=== PATIENT | female | born 1985 | race Hispanic/Latino ===

== ENCOUNTER 2016-12-14 22:18 | Emergency (ER) | payer OTHER ==
[2016-12-14 22:31] VITALS: BP 134/81; PULSE 90; RESP 16; TEMP 97.8; O2SAT 100
--- NOTE | 2016-12-14 22:52 | ED PDOC ---
HPI: General Adult Time Seen by Provider: 12/14/16 22:34 Chief Complaint (Nursing): Finger,Hand,&Wrist Chief Complaint (Provider): Ring stuck on left ring finger History Per: Patient History/Exam Limitations: no limitations Onset/Duration Of Symptoms: Hrs Have you had recent travel within the past 21 days to any of the following countries: [place], [place], [place] or [place]?: No Current Symptoms Are (Timing): Still Present Additional Complaint(s): PT states she was out at graduation when she came home she left her ring and engagement ring where tight. Pt states that she was unable to remove finger after ice and elevation which prompted visit. No injury. Past Medical History Reviewed: Historical Data, Nursing Documentation, Vital Signs Vital Signs: Last Vital Signs Temp 97.8 F 12/14/16 22:28 Pulse 90 12/14/16 22:28 Resp 16 12/14/16 22:28 BP 134/81 12/14/16 22:28 Pulse Ox 100 12/14/16 22:52 - Medical History PMH: No Chronic Diseases - Surgical History Surgical History: No Surg Hx - Family History Family History: States: No Known Family Hx - Living Arrangements Living Arrangements: Other (, 4 month old) - Social History Current smoker - smoking cessation education provided: No Alcohol: Occasional - Allergies Allergies/Adverse Reactions: Allergies Allergy/AdvReac Type Severity Reaction Status Date / Time No Known Allergies Allergy Verified 12/14/16 22:28 Review of Systems ROS Statement: Except As Marked, All Systems Reviewed And Found Negative Skin: Positive for: Other Physical Exam - Reviewed Nursing Documentation Reviewed: Yes Vital Signs Reviewed: Yes - Physical Exam Appears: Positive for: Well, Non-toxic, No Acute Distress Head Exam: Positive for: ATRAUMATIC, NORMAL INSPECTION, NORMOCEPHALIC Skin: Positive for: Warm. Negative for: Normal Color (Erythema and edema of the left ring finger ) Eye Exam: Positive for: Normal appearance ENT: Positive for: Normal ENT Inspection Neck: Positive for: Normal, Painless ROM Respiratory: Negative for: Accessory Muscle Use, Respiratory Distress Back: Positive for: Normal Inspection Extremity: Positive for: Normal ROM, Swelling (Left ring finger ) Neurologic/Psych: Positive for: Alert, Oriented - ECG O2 Sat by Pulse Oximetry: 100 Disposition - Clinical Impression Clinical Impression: Finger injury - Disposition Disposition: Routine/Home Disposition Time: 22:51 Condition: GOOD
== END 2016-12-14 23:04 | disposition home or self-care (01) ==
LOC: H.ER 22:18
DX: T14.8 Other injury of unspecified body region (principal); W49.04XA Ring or other jewelry causing external constriction, initial encounter; Y92.89 Other specified places as the place of occurrence of the external cause